=== PATIENT | male | born 1965 | race Caucasian/White ===

== ENCOUNTER 2017-01-10 21:10 | Observation (INO) | payer BC ==
[~2017-01-10 21:10] MED LIST: AMIO200; LISI10; LOVA1TAB47 PO; NITR.3 SL; NORV5TAB OR; PLAV75TA OR; TOPR25TA2 PO; Z.0.NO CURRENT MEDS
[2017-01-10 21:12] VITALS: BP 127/63; PULSE 76; RESP 20; O2SAT 100
[2017-01-10 21:30] VITALS: BP 148/100; PULSE 70; RESP 20; O2SAT 100
[2017-01-10] MEDS ORDERED: MORPHINE SULFATE 4 MG/ML INJ IV PUSH ONE (21:30)
[2017-01-10] MEDS ORDERED: ASPIRIN 325 MG TAB PO ONE (21:30)
[2017-01-10] MEDS ORDERED: SODIUM CHLORIDE 0.9% FLUSH 10 ML FLUSH IVF PRN (21:30)
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
[2017-01-10 21:56] LABS: AUTOMATED NEUTROPHIL # 5.6 TH/MM3 (1.8-7.7); BASOPHIL % 0.6 % (0.0-2.0); EOSINOPHIL # 0.1 TH/MM3 (0-0.4); EOSINOPHIL % 1.2 % (0.0-4.0); HEMATOCRIT 38.2 % (39.0-51.0); HEMO FLAGS DIFF FINAL; LYMPH % 15.9 % (9.0-44.0); LYMPHOCYTE # 1.2 TH/MM3 (1.0-4.8); MEAN CELL VOLUME 90.4 FL (80.0-100.0); MEAN CORPUSCULAR HEMOGLOBIN 29.7 PG (27.0-34.0); MEAN CORPUSCULAR HGB CONC 32.9 % (32.0-36.0); MONO % 8.4 % (0.0-8.0); NEUT % 73.9 % (16.0-70.0); PLATELET COUNT 203 TH/MM3 (150-450); RED BLOOD COUNT 4.23 MIL/MM3 (4.50-5.90); RED CELL DISTRIBUTION WIDTH 13.8 % (11.6-17.2); WHITE BLOOD COUNT 7.5 TH/MM3 (4.0-11.0)
[2017-01-10 22:15] LABS: ANION GAP 6 MEQ/L (5-15); BICARBONATE 28.6 MEQ/L (21.0-32.0); BLOOD UREA NITROGEN 9 MG/DL (7-18); CHLORIDE 105 MEQ/L (98-107); GLOMERULAR FILTRATION RATE 95 ML/MIN (>89); POTASSIUM 3.5 MEQ/L (3.5-5.1); SODIUM (NA) 140 MEQ/L (136-145)
[2017-01-10 22:18] LABS: APTT (PATIENT) 25.7 SEC (24.3-30.1); INTERNATIONAL NORMALIZED RATIO 0.9 RATIO; PROTHROMBIN TIME - PATIENT 9.8 SEC (9.8-11.6)
[2017-01-10 22:19] LABS: CREATINE KINASE 173 U/L (39-308)
[2017-01-10 22:32] LABS: CKMB 2.2 NG/ML (0.5-3.6)
--- NOTE | 2017-01-10 22:35 | RADRPT ---
EXAM DATE/TIME: 01/10/2017 21:46 [facility] COMPARISON: No previous studies available for comparison. INDICATIONS : Chest pain. MEDICAL HISTORY : None. SURGICAL HISTORY : None. ENCOUNTER: Initial ACUITY: 1 day PAIN SCORE: 5/10 LOCATION: Bilateral chest FINDINGS: A single view of the chest demonstrates the lungs to be symmetrically aerated without evidence of mas s, infiltrate or effusion. The cardiomediastinal contours are unremarkable. Osseous structures are intact. CONCLUSION: No acute disease. Bar Wilder MD on January 10, 2017 at 22:33 Board Certified Radiologist. This report was verified electronically.
[2017-01-10] MEDS ORDERED: ACETAMINOPHEN 500 MG CPLT PO PRN (22:45)
[2017-01-10] MEDS ORDERED: ACETAMINOPHEN/HYDROcodone 325 MG/7.5 MG TAB PO PRN (22:45)
[2017-01-10 23:00] VITALS: BP 138/66; PULSE 65; RESP 20; O2SAT 100
[2017-01-11 01:00] VITALS: BP 129/70; PULSE 61; RESP 20; O2SAT 100
[2017-01-11 01:14] LABS: CREATINE KINASE 136 U/L (39-308)
[2017-01-11 01:26] LABS: CKMB 1.8 NG/ML (0.5-3.6)
[2017-01-11 01:58] VITALS: O2SAT 99
[2017-01-11] MEDS ORDERED: LOVA20TA PO (02:09)
[2017-01-11] MEDS ORDERED: METO25TA3 PO (02:09)
[2017-01-11] MEDS ORDERED: NITR0.4S SL (02:09)
[2017-01-11] MEDS ORDERED: ASPI81CH CHEW (02:09)
[2017-01-11] MEDS ORDERED: AMLO10 PO (02:09)
[2017-01-11] MEDS ORDERED: AMIO200T PO (02:09)
[2017-01-11] MEDS ORDERED: APIX2.5T PO (02:09)
[2017-01-11 02:49] VITALS: BP 96/54; PULSE 53; RESP 18; TEMP 98.7; O2SAT 91
[2017-01-11 08:14] VITALS: BP 99/51; PULSE 58; RESP 21; TEMP 97.9; O2SAT 98
[2017-01-11] MEDS ORDERED: METOPROLOL TARTRATE 25 MG TAB PO SCH (09:30)
[2017-01-11] MEDS ORDERED: AMIODARONE 200 MG TAB PO SCH (09:30)
[2017-01-11] MEDS ORDERED: PRAVASTATIN SOD 20 MG TAB PO SCH (09:30)
--- NOTE | 2017-01-11 09:44 | HHI.HP ---
HPI Primary Care Physician No Primary Care Physician Chief Complaint Chest pain History of Present Illness This is a 51-year-old male with history of CAD with a stent 2003 as well as 2008 and also paroxysmal atrial fibrillation that presents complaining of 2 days of intermittent chest discomfort. He states last night it worsened. Lasted longer. Took nitroglycerin. First two nitroglycerin did not change his symptoms however the third brought the discomfort from a 7 to a 4 out of 10.. The discomfort finally resolved after about 2 hours. The discomfort has not recurred. Patient denies associated shortness breath, nausea, or diaphoresis. He does not have a senior specialist in the area. He states he moved recent few days ago from [place]. Voices compliance with his medications. Review of Systems General: Patient denies fevers, chills recent, and recent travel HEENT: Patient denies headache, sore throat, difficulty swallowing. Cardiovascular: Has the chest discomfort as mentioned above. Denies sensation of heart beating rapidly or irregularly. No syncope. Denies diaphoresis. Respiratory: Denies shortness of breath or inspirational chest discomfort. Denies coughing wheezing or hemoptysis. GI: Patient denies nausea, vomiting, diarrhea, abdominal pain, bloody stools. Musculoskeletal: Patient denies joint pain or edema. Denies calf pain or edema. Neurovascular: Patient denies numbness, tingling, weakness in extremities. Denies headache. Endocrine: Denies polyuria and polydipsia. Hematologic: Denies easy bruising. Skin: Denies rash or itching. Past Family Social History Allergies: Coded Allergies: Codeine (Verified Allergy, Severe, HIVES, 07/30/11) Onion (Verified Allergy, Severe, Anaphylaxis, 12/04/11) Phenergan (Verified Allergy, Severe, Anaphylaxis, 07/30/11) Sulfa (Verified Allergy, Severe, HIVES, 07/30/11) Past Medical History CAD with stenting. Paroxysmal atrial fibrillation. Hypertension, hyperlipidemia. Denies diabetes. Past Surgical History Cardiac catheterizations with stenting. Reported Medications Reported Meds & Active Scripts Active Reported Nitrostat SL (Nitroglycerin) 0.4 Mg Subl 0.4 Mg SL DIRECTED PRN 1 tablet under the tongue as needed for chest pain. Repeat every 5 minutes for a total of 3 DOSES or call 911 if NO relief. Amiodarone (Amiodarone HCl) 200 Mg Tab 200 Mg PO DAILY Lovastatin 20 Mg Tab 20 Mg PO DAILY Norvasc (Amlodipine Besylate) 10 Mg Tab 10 Mg PO DAILY Metoprolol Tartrate 25 Mg Tab 25 Mg PO BID Eliquis (Apixaban) 2.5 Mg Tab 2.5 Mg PO BID Aspirin 81 Mg Chew 81 Mg CHEW DAILY Active Ordered Medications Current Medications Medications (Trade) Dose Ordered Sig/Rojas Route Start Time Stop Time Status Last Admin (NS Flush) 2 ml UNSCH PRN IVF 01/10/17 21:30 (Tylenol) 500 mg Q4H PRN PO 01/10/17 22:45 01/10/17 23:17 ([place] 7.5-325 Mg) 1 tab Q4H PRN PO 01/10/17 22:45 01/11/17 00:42 (Cordarone) 200 mg DAILY PO 01/11/17 09:30 (Norvasc) 10 mg DAILY PO 01/11/17 09:30 (Pravachol) 20 mg DAILY PO 01/11/17 09:30 (Lopressor) 25 mg BID PO 01/11/17 09:30 Family History There is family history of CAD. Social History Patient states he does not smoke. When asked if he smoked before patient replies I do not smoke. Denies alcohol or illicit drug use. Physical Exam Vital Signs Vital Signs Date Time Temp Pulse Resp B/P Pulse Ox O2 Delivery O2 Flow Rate FiO2 01/11/17 08:14 97.9 58 21 99/51 98 01/11/17 02:49 98.7 53 18 96/54 91 01/11/17 01:58 99 01/11/17 01:00 61 20 129/70 100 Nasal Cannula 2 01/10/17 23:00 65 20 138/66 100 Nasal Cannula 2 01/10/17 21:30 100 Nasal Cannula 2 01/10/17 21:30 70 20 148/100 100 Nasal Cannula 2 01/10/17 21:30 70 20 100 Room Air 01/10/17 21:30 20 100 Nasal Cannula 2 01/10/17 21:12 76 20 127/63 100 Physical Exam GENERAL: This is a well-nourished, well-developed patient, in no apparent distress. Patient speaks in clear complete sentences. Patient is pleasant. HEENT: Head is atraumatic and normocephalic. Neck is supple without lymphadenopathy and trachea is midline. No JVD or carotid bruits. CARDIOVASCULAR: Regular rate and rhythm without murmurs, gallops, or rubs. RESPIRATORY: Clear to auscultation. Breath sounds equal bilaterally. No wheezes , rales, or rhonchi. Chest wall is nontender. No use of accessory muscles. GASTROINTESTINAL: Abdomen is nontender, nondistended. Abdomen soft. No obvious pulsatile mass or bruit. No CVA tenderness. Strong femoral pulses bilaterally. Normal bowel sounds in all quadrants. MUSCULOSKELETAL: Patient is moving upper and lower extremities freely. No calf tenderness or edema, no Homans sign. Strong pulses in upper and lower extremities. NEUROLOGICAL: Patient is alert and oriented. Cranial nerves 2-12 are grossly intact. No focal deficits and speech is clear. SKIN: No rash and turgor is normal. Laboratory Laboratory Tests Test 01/10/17 01/11/17 21:30 00:30 White Blood Count 7.5 Red Blood Count 4.23 Hemoglobin 12.6 Hematocrit 38.2 Mean Corpuscular Volume 90.4 Mean Corpuscular Hemoglobin 29.7 Mean Corpuscular Hemoglobin 32.9 Concent Red Cell Distribution Width 13.8 Platelet Count 203 Mean Platelet Volume 9.6 Neutrophils (%) (Auto) 73.9 Lymphocytes (%) (Auto) 15.9 Monocytes (%) (Auto) 8.4 Eosinophils (%) (Auto) 1.2 Basophils (%) (Auto) 0.6 Neutrophils # (Auto) 5.6 Lymphocytes # (Auto) 1.2 Monocytes # (Auto) 0.6 Eosinophils # (Auto) 0.1 Basophils # (Auto) 0.0 CBC Comment DIFF FINAL Differential Comment Prothrombin Time 9.8 Prothromb Time International 0.9 Ratio Activated Partial 25.7 Thromboplast Time Sodium Level 140 Potassium Level 3.5 Chloride Level 105 Carbon Dioxide Level 28.6 Anion Gap 6 Blood Urea Nitrogen 9 Creatinine 0.85 Estimat Glomerular Filtration 95 Rate Random Glucose 80 Calcium Level 8.6 Magnesium Level 2.0 Total Creatine Kinase 173 136 Creatine Kinase MB 2.2 1.8 Troponin I LESS THAN 0.02 LESS THAN 0.02 B-Type Natriuretic Peptide 63 Result Diagram: 01/10/17212901/10/172129 Imaging Last Impressions Chest X-Ray 01/10/172120 Signed Impressions: Service Date/Time: Tuesday, January 10, 2017 21:46 - CONCLUSION: No acute disease. Bar Wilder MD Course EKGs have been sinus rhythm to sinus bradycardia without significant ST segment depressions or elevations. Assessment and Plan Assessment and Plan * Chest pain: Patient has had first 2 cardiac enzymes and EKGs for ruling out purposes. He refused the third lab draw. He has been seen by Dr. Kyle Alexis of cardiology in the chest pain center. He will undergo a Lexiscan and be discharged if the stress test were to be nonischemic. He needs to follow -up with PCP and a senior specialist. * CAD: We will assess with stress testing. * Hypertension: Continue current medication. * Hyperlipidemia: Continue current medication. * Paroxysmal atrial fibrillation: Continue current medication and he needs to follow-up with her senior specialist. Patient is stable at this time. Patient is agreeable to this plan. Milton Santillan Jan 11, 2017 09:44
--- NOTE | 2017-01-11 12:04 | EKG ---
Date Performed: 01/11/2017 Time Performed: 05:01:18 PTAGE: 51 years EKG: ECTOPIC ATRIAL BRADYCARDIA SEPTAL MYOCARDIAL INFARCTION ABNORMAL ECG PREVIOUS TRACING : 01/11/2017 00.20 Since previous tracing, no significant change noted DOCTOR: Kyle Alexis Interpretating Date/Time 01/11/2017 11:56:30
--- NOTE | 2017-01-11 12:05 | EKG ---
Date Performed: 01/11/2017 Time Performed: 00:20:39 PTAGE: 51 years EKG: ECTOPIC BRADYCARDIA SEPTAL MYOCARDIAL INFARCTION ABNORMAL ECG PREVIOUS TRACING : 12/05/2011 01.09 Since previous tracing, no significant change noted DOCTOR: Kyle Alexis Interpretating Date/Time 01/11/2017 11:57:48
--- NOTE | 2017-01-11 12:06 | EKG ---
Date Performed: 01/10/2017 Time Performed: 21:20:38 PTAGE: 51 years EKG: Sinus rhythm NORMAL ECG NO PREVIOUS TRACING DOCTOR: Kyle Alexis Interpretating Date/Time 01/11/2017 12:00:10
== END 2017-01-11 10:27 | disposition left against medical advice (07) ==
LOC: NEPC 21:10 → NEDA 22:46 → NEPGCP 01-11 02:23
PROVIDERS: ADMIT Internal Medicine Interventional Cardiology; ATTEND Internal Medicine Interventional Cardiology
DX: R07.9 Chest pain, unspecified (principal); I11.0 Hypertensive heart disease with heart failure; I50.9 Heart failure, unspecified; E78.5 Hyperlipidemia, unspecified; I25.10 Atherosclerotic heart disease of native coronary artery without angina pectoris; I48.0 Paroxysmal atrial fibrillation; E78.00 Pure hypercholesterolemia, unspecified; F31.9 Bipolar disorder, unspecified; F41.9 Anxiety disorder, unspecified; I25.2 Old myocardial infarction; F17.210 Nicotine dependence, cigarettes, uncomplicated; Z88.5 Allergy status to narcotic agent; Z95.5 Presence of coronary angioplasty implant and graft; Z88.2 Allergy status to sulfonamides; Z88.8 Allergy status to other drugs, medicaments and biological substances; Z91.018 Allergy to other foods; Z79.82 Long term (current) use of aspirin; Z79.01 Long term (current) use of anticoagulants; Z79.02 Long term (current) use of antithrombotics/antiplatelets
CPT/HCPCS: 71010; 80048; 82550; 82552; 83735; 83880; 84484; 85025; 85610; 85730; 93005; 96374; 99285; G0378; J2270